=== PATIENT | female | born 1995 | race Caucasian/White ===

== ENCOUNTER → 2022-03-19 12:34 | Outpatient (CLI) | payer BC, SELFPAY ==
[2022-03-19 14:06] LABS: Alanine Aminotransferase 247 IU/L (<35); Albumin 4.4 g/dL (3.5-5.0); Albumin Globulin Ratio 1.3 (1.0-2.8); Alkaline Phosphatase 55 U/L (38-126); BUN Creatinine Ratio 14.1 (6-22); Bilirubin Total 0.6 mg/dL (0.2-1.3); Blood Urea Nitrogen 11 mg/dL (7-17); Calcium 8.9 mg/dL (8.4-10.2); Carbon Dioxide 25 mmol/L (22-32); Chloride 105 mmol/L (98-107); Estimated Glomerular Filt Rate > 60 mL/min (>60); Globulin 3.4 g/dL (1.7-4.1); Glucose 97 mg/dL (70-100); HEMOLYSIS < 15 (0-50); Potassium 4.4 mmol/L (3.4-5.1); Sodium 137 mmol/L (137-145); Total Protein 7.8 g/dL (6.3-8.2)
[2022-03-19 14:12] LABS: Aspartate Aminotransferase 1045 IU/L (14-36)
[2022-03-19 14:55] LABS: Creatine Kinase 66046 U/L (30-135)
[2022-03-19 15:10] LABS: CKMB % Relative Index 0.1 % (1.5-5.0)
== END ==
PROVIDERS: Referring Provider Physician Assistant; Visit Provider Physician Assistant
DX: M79.601 Pain in right arm (principal); M79.602 Pain in left arm
CPT/HCPCS: 36415; 80053; 82550; 82553

== ENCOUNTER 2022-03-19 15:59 | Observation (INO) | payer BC, SELFPAY ==
[2022-03-19] VITALS (11 sets, daily range): BP systolic 136–175; BP diastolic 78–117; PULSE 58–80; RESP 16; TEMP 36.9–37; O2SAT 98–100; BMI 22.8
--- NOTE | 2022-03-19 17:01 | ED_ITS ---
HPI - Extremity Problem General Chief complaint: Extremity Problem,Nontraumatic Stated complaint: Ref for fluids Time Seen by Provider: 03/19/22 16:31 Source: patient Mode of arrival: Ambulatory Limitations: no limitations History of Present Illness HPI Narrative: This is a healthy 26-year-old female with no known past medical issues. Patient had very intense workout on Thursday, she had been working out regularly but recently moved to the area with her boyfriend and has had for work out in the past week. She did quite a bit of upper workout including dumbbell raises, 18 assisted pull-ups, 10 power cleans, shoulder presses and did this 7 times total. Patient states her bilateral upper extremities have become very painful, 3 painful or to fully extend or flex, patient states she had some nausea today has had any other symptoms. No chest pain or shortness of breath, no abdominal flank pain. She noted this afternoon that her urine was dark. Patient has not appreciated decrease in her urine output. Patient was seen at the walk-in clinic had a CPK level obtained which was found to be 66,000 with a normal renal function and electrolytes and referred to the emergency department. Patient has been trying to drink quite a bit of water. She does not take any daily medications. No prior surgeries. No known drug allergies. Tobacco, she drinks 1-2 alcoholic drinks 4 times weekly, no illicit. She does not have a local primary care physician. She moved to the area from [place]. Related Data Home Medications Medication Instructions Recorded Confirmed control PO 03/19/22 03/19/22 Allergies Allergy/AdvReac Type Severity Reaction Status Date / Time No Known Drug Allergies Allergy Verified 03/19/22 16:30 Review of Systems Review of Systems ROS Unobtainable: All systems reviewed & are unremarkable except as noted in HPI and below Patient History Social History Smoking Status: Never smoker Smoking Status: Never smoker alcohol intake frequency: a few times a week Substance Use Type: does not use Exam Narrative Exam Narrative: GENERAL: Alert and oriented x three, female in mild distress. HEENT: Head normocephalic, atraumatic, EOMI, pupils reactive, face symmetric, moist mucous membranes NECK: Supple, full range of motion CARDIOVASCULAR: Regular rate and rhythm without murmurs, rubs or gallops. RESPIRATORY: Breath sounds equal bilaterally, no wheezes rales or rhonchi. ABDOMEN: Soft, nontender. Normoactive bowel sounds all 4 quadrants. No guarding or rebound, rigidity, no mass : No CVA tenderness EXTREMITIES: Patient hold her arm slightly flexed she has some flexion extensi on but is quite painful, compartments are soft, mildly tender to palpation. 2+ radial pulses bilaterally. No clubbing or edema appreciated. Neurovascularly intact. Normal sensation to light touch. NEUROLOGICAL: Cranial nerves II through XII grossly intact. Moving all extremities SKIN: Warm, dry, no petechiae, no rashes or lesions. Initial Vital Signs Initial Vital Signs: Vital Signs Temperature 98.4 F 03/19/22 16:25 Pulse Rate 80 03/19/22 16:25 Respiratory Rate 16 03/19/22 16:25 Blood Pressure 175/117 H 03/19/22 16:25 Pulse Oximetry 100 03/19/22 16:25 Course Orders Ordered: ED Orders 03/19/22 16:45 CBC Auto Diff [Complete Blood Count AUTO DIFF] Stat Myoglobin Stat PTT [Partial Thromboplastin Time] Stat Prothrombin Time INR Stat 03/19/22 16:50 UA Complete [Urinalysis and Microscopic] Stat 03/19/22 16:59 COVID19 -Nasal RAPID/Pre-Proc Stat Sodium Chloride (Normal Saline 0.9%) 1,000 mls @ 200 mls/hr IV CONT CHIN Discontinued Medications Sodium Chloride (Normal Saline 0.9%) 1,000 mls @ 1,000 mls/hr IV BOLUS ONE Stop: 03/19/22 17:31 Last Infusion: 03/19/22 18:33 Dose: 0 mls/hr Documented by: Admin: 03/19/22 17:14 Dose: 1,000 mls/hr Documented by: NRHOADS Sodium Chloride (Normal Saline 0.9%) 1,000 mls @ 1,000 mls/hr IV BOLUS ONE Stop: 03/19/22 18:23 Last Admin: 03/19/22 17:54 Dose: 1,000 mls/hr Documented by: NRHOADS Reevaluation(s) Reevaluation #1: Discussed today's findings with patient. Plan for observation. Reevaluation #2: Patient states right bicep feels little bit more swollen. Her IV is in her left upper extremity. Patient's compartments are soft on recheck, she is tender with palpation but not exquisitely so. No pain out of proportion or signs of compartment syndrome. Consultations Consultation #1: Dr. Chaudhry accepts for observation, with a CK of 66,000, elevation in LFTs but normal renal function and electrolytes. Patient initiated on fluids with plan for monitoring. Time: 18:10 Vital Signs Vital signs: Vital Signs - 8 hr 03/19/22 16:25 03/19/22 17:04 03/19/22 17:05 Temperature 98.4 F Pulse Rate 80 63 Respiratory Rate 16 Blood Pressure 175/117 H 152/89 H Pulse Oximetry 100 100 100 03/19/22 17:30 03/19/22 18:00 Temperature Pulse Rate 58 L 69 Respiratory Rate Blood Pressure 136/80 138/87 Pulse Oximetry 100 100 MDM - Extremity (Nontraumatic) Lab Data Result diagrams: 03/19/22 16:45 Labs: Lab Results 03/19/22 03/19/22 03/19/22 Range/Units 16:45 16:45 16:50 WBC 7.1 (4.5-11.0) X10^3/uL RBC 4.17 (4.0-5.2) X10^6/uL Hgb 12.9 (12.0-16.0) g/dL Hct 36.9 (36-46) % MCV 88.5 (80-100) fL MCH 30.9 (26-34) PG MCHC 34.9 (30-36) % RDW 13.3 (11.6-14.8) % Plt Count 309 (150-400) X10^3/uL Neut % (Auto) 62.7 (50-75) % Lymph % (Auto) 27.8 (25-40) % [place] % (Auto) 7.1 (3-14) % Eos % (Auto) 1.4 L (2-4) % Baso % (Auto) 1.0 (0-2) % Neut # (Auto) 4500 (0244-0385) /uL Lymph # (Auto) 2000 (5809-8971) /uL [place] # (Auto) 500 (0-900) /uL Eos # (Auto) 100 (0-450) /uL Baso # (Auto) 100 (0-100) /uL PT 11.2 (10.1-12.7) SECONDS INR 1.0 (0.9-1.3) APTT 27 (26.4-36.2) SECONDS Urine Color Yellow Urine Appearance Clear Urine pH 6.5 (4.5-8.0) Ur Specific [place] 1.020 (1.000-1.035) Urine Protein 2+ H (Negative) Urine Glucose (UA) Negative (Negative) g/dL Urine Ketones Negative (NEGATIVE) Urine Occult Blood 3+ H (Negative) Urine Nitrate Negative (Negative) Urine Bilirubin Negative (NEGATIVE) Urine Urobilinogen 0.2 (0.2) E.U./dL Ur Leukocyte Esterase Negative (NEGATIVE) Urine RBC 0-1/hpf (0-5/HPF) Urine WBC None seen (0-5/HPF) Ur Squamous Epith Cells 1-5 /hpf (0-5/HPF) Urine Bacteria None seen (None) Ur Culture Indicated? Cult not indicated SARS-CoV-2 (PCR) (Negative) 03/19/22 Range/Units 16:59 WBC (4.5-11.0) X10^3/uL RBC (4.0-5.2) X10^6/uL Hgb (12.0-16.0) g/dL Hct (36-46) % MCV (80-100) fL MCH (26-34) PG MCHC (30-36) % RDW (11.6-14.8) % Plt Count (150-400) X10^3/uL Neut % (Auto) (50-75) % Lymph % (Auto) (25-40) % [place] % (Auto) (3-14) % Eos % (Auto) (2-4) % Baso % (Auto) (0-2) % Neut # (Auto) (2117-1300) /uL Lymph # (Auto) (2367-8810) /uL [place] # (Auto) (0-900) /uL Eos # (Auto) (0-450) /uL Baso # (Auto) (0-100) /uL PT (10.1-12.7) SECONDS INR (0.9-1.3) APTT (26.4-36.2) SECONDS Urine Color Urine Appearance Urine pH (4.5-8.0) Ur Specific [place] (1.000-1.035) Urine Protein (Negative) Urine Glucose (UA) (Negative) g/dL Urine Ketones (NEGATIVE) Urine Occult Blood (Negative) Urine Nitrate (Negative) Urine Bilirubin (NEGATIVE) Urine Urobilinogen (0.2) E.U./dL Ur Leukocyte Esterase (NEGATIVE) Urine RBC (0-5/HPF) Urine WBC (0-5/HPF) Ur Squamous Epith Cells (0-5/HPF) Urine Bacteria (None) Ur Culture Indicated? SARS-CoV-2 (PCR) Negative (Negative) ECG Data Attestation EKG: I personally reviewed and interpreted this ECG as follows: Interpretation: Sinus rhythm rate of 70 6p are 164 QRS 80 QTC [address] No acute ST elevation or depression. MDM Narrative Medical decision making narrative: This is a 26-year-old female sent from the walk-in clinic for a CK of 66,000 after an intense workout 4 days ago followed by several days of less intense workouts. Patient has elevation LFTs but normal renal function and electrolytes. Patient was given 2 L fluid bolus, IV fluids at 200 cc/hour initiated with goal for 200-300 mL urine output and will need to be adjusted. Patient does not have any signs of compartment syndrome on examination. With hospitalist who accepts for observation. Discharge Plan Departure Patient Disposition: Admitted as Observation Clinical Impression: Rhabdomyolysis, Elevated LFTs Admit Date/Time: 03/19/22 18:10 Admit Provider: Noemy Miller
[2022-03-19 17:06] LABS: Appearance Urine UA Clear; Bilirubin Urine UA NEGATIVE (NEGATIVE); Color Urine UA Yellow; Glucose Urine UA NEGATIVE (Negative); Ketones Urine UA NEGATIVE (NEGATIVE); Leukocyte Esterase Urine UA NEGATIVE (NEGATIVE); Nitrite Urine UA NEGATIVE (Negative); Occult Blood Urine UA 3+ (Negative); Protein Urine UA 2+ (Negative); Urobilinogen Urine UA 0.2 E.U./dL (0.2); pH Urine UA 6.5 (4.5-8.0)
[2022-03-19 17:12] LABS: Add Manual Diff / Slide Review NO; Basophils Absolute Auto 100 /uL (0-100); Eosinophils Absolute Auto 100 /uL (0-450); Eosinophils Percent Auto 1.4 % (2-4); Hematocrit 36.9 % (36-46); Hemoglobin 12.9 g/dL (12.0-16.0); Lymphocytes Absolute Auto 2000 /uL (1100-4500); Lymphocytes Percent Auto 27.8 % (25-40); Mean Corpuscular HGB Conc 34.9 % (30-36); Mean Corpuscular Hemoglobin 30.9 PG (26-34); Mean Corpuscular Volume 88.5 fL (80-100); Monocytes Absolute Auto 500 /uL (0-900); Monocytes Percent Auto 7.1 % (3-14); Neutrophils Absolute Auto 4500 /uL (1500-7000); Neutrophils Percent Auto 62.7 % (50-75); Platelet Count 309 X10^3/uL (150-400); Red Blood Cell Count 4.17 X10^6/uL (4.0-5.2); Red Cell Distribution Width 13.3 % (11.6-14.8); White Blood Cell Count 7.1 X10^3/uL (4.5-11.0)
[2022-03-19] MEDS: SODIUM CHLORIDE 0.9% 1,000 ML 1000 ML IV ×2 (17:14→17:54)
[2022-03-19 17:15] LABS: Bacteria Urine None Seen; Culture Indicated Urine Cult Not Indicated; RBC Urine 0-1/HPF (0-5/HPF); Squamous Epithelial Cell Urine 1-5 /HPF (0-5/HPF); WBC Urine None Seen (0-5/HPF)
[2022-03-19 17:27] LABS: COVID19 -Nasal RAPID Negative (Negative)
[2022-03-19 17:35] LABS: Prothrombin Time 11.2 SECONDS (10.1-12.7)
[2022-03-19 17:38] LABS: PTT Partial Thromboplastin Tim 27 SECONDS (26.4-36.2)
[2022-03-19] MEDS: SODIUM CHLORIDE 0.9% 1,000 ML 200 ML IV (19:07)
[2022-03-19] MEDS: SODIUM CHLORIDE 0.9% 1,000 ML 500 ML IV ×2 (20:15→22:18)
--- NOTE | 2022-03-19 23:29 | PM.HP.1 ---
History of Present Illness History of Present Illness Date Patient Seen: 03/19/22 Time Patient Seen: 21:00 Chief complaint: Ref for fluids Narrative: Ms. Martinez is a 26W with no significant PMH who presents with bilateral arm swelling, pain, weakness. She has noted that she did strenuous exercise three days ago, and this continued the following days. These were primarily arm exercises. She also did go on a run. She noted two days ago the beginning of arm swelling that was primarily located in her bicep. Over the next few days, this worsened to include pain with extension. She noted dark urine. She was aware of rhabdo, and sought to be checked out as she was concerned she might have it. She was first seen in the walk-in clinic, where CK was noted to be 66,000. She was sent to the ED. In the ED workup was done, vitals notable for normal temperature, heart rate. Blood pressure elevated 170s/110s. Labs notable for WBC 7.1, hgb 12.9, plts 309. Creatinine 0.78, K 4.4. AST/ALT 1045/247. UA notable for 3+ blood with no RBCs. COVID negative. She was given IV fluids and admitted for further treatment. Family history: asked and kidney disease Social history: occasional EtOH Patient History Family & Social History Social History: household members significant other Prior Living Arrangements House Safety & Behavioral: Feels Safe in Current Yes Environment Tobacco & Substance use: Smoking Status Never smoker alcohol intake frequency a few times a week Substance Use Type does not use Meds Home Medications and Allergies Home Medications Medication Instructions Recorded Confirmed Type control PO 03/19/22 03/19/22 History Allergies Allergy/AdvReac Type Severity Reaction Status Date / Time No Known Drug Allergies Allergy Verified 03/19/22 16:30 Review of Systems Review of Systems Narrative: 14 systems reviewed and negative aside from what is noted in HPI Exam Vital Signs (past 8 hours): - 03/19/22 16:25 03/19/22 17:04 03/19/22 17:05 Temperature 98.4 F Pulse Rate 80 63 Respiratory Rate 16 Blood Pressure 175/117 H 152/89 H Pulse Oximetry 100 100 100 03/19/22 17:30 03/19/22 18:00 03/19/22 18:30 Temperature Pulse Rate 58 L 69 71 Respiratory Rate Blood Pressure 136/80 138/87 149/78 H Pulse Oximetry 100 100 100 03/19/22 19:00 03/19/22 19:20 03/19/22 20:00 Temperature 98.6 F Pulse Rate 76 75 Respiratory Rate 16 Blood Pressure 151/97 H 159/85 H Pulse Oximetry 100 100 100 Oxygen Delivery Method Room Air Oxygen Flow Rate 0 Narrative Exam Narrative: GEN: no acute distress HEENT: PERRL, moist mucous membranes NECK: trachea midline, no JVD CV: regular rate and rhythm, no murmurs PULM: clear bilaterally, no wheezes, rhonchi, rales EXT: warm and well perfused, upper extremites notable for moderate edema in the biceps and forearms. Range of motion at elbow slightly limited due to pain and swelling. Range of motion of all other upper extremity joints intact. Arm is warm and well perfused, 2+ pulses with normal cap refill. Sensation is intact NEURO: awake, alert, no focal deficits noted PSYCH: pleasant, cooperative, appropriate affect Objective Labs Result Diagrams: 03/19/22 16:45 Labs: Laboratory Results - last 24 hr 03/19/22 03/19/22 03/19/22 16:45 16:45 16:50 WBC 7.1 RBC 4.17 Hgb 12.9 Hct 36.9 MCV 88.5 MCH 30.9 MCHC 34.9 RDW 13.3 Plt Count 309 Neut % (Auto) 62.7 Lymph % (Auto) 27.8 [place] % (Auto) 7.1 Eos % (Auto) 1.4 L Baso % (Auto) 1.0 Neut # (Auto) 4500 Lymph # (Auto) 2000 [place] # (Auto) 500 Eos # (Auto) 100 Baso # (Auto) 100 PT 11.2 INR 1.0 APTT 27 Urine Color Yellow Urine Appearance Clear Urine pH 6.5 Ur Specific [place] 1.020 Urine Protein 2+ H Urine Glucose (UA) Negative Urine Ketones Negative Urine Occult Blood 3+ H Urine Nitrate Negative Urine Bilirubin Negative Urine Urobilinogen 0.2 Ur Leukocyte Esterase Negative Urine RBC 0-1/hpf Urine WBC None seen Ur Squamous Epith Cells 1-5 /hpf Urine Bacteria None seen Ur Culture Indicated? Cult not indicated SARS-CoV-2 (PCR) 03/19/22 16:59 WBC RBC Hgb Hct MCV MCH MCHC RDW Plt Count Neut % (Auto) Lymph % (Auto) [place] % (Auto) Eos % (Auto) Baso % (Auto) Neut # (Auto) Lymph # (Auto) [place] # (Auto) Eos # (Auto) Baso # (Auto) PT INR APTT Urine Color Urine Appearance Urine pH Ur Specific [place] Urine Protein Urine Glucose (UA) Urine Ketones Urine Occult Blood Urine Nitrate Urine Bilirubin Urine Urobilinogen Ur Leukocyte Esterase Urine RBC Urine WBC Ur Squamous Epith Cells Urine Bacteria Ur Culture Indicated? SARS-CoV-2 (PCR) Negative Assessment & Plan Assessment & Plan narrative: Ms. Martinez is a 26W who presents with arm pain and swelling after exercise found to have rhabdomyolysis 1. Acute rhabdomyolysis -secondary to exercise -initial CK > 66,000 -urine showed positive blood, but no RBC, consistent with myoglobinuria -trend CK daily -electrolytes normal -AST/ALT elevated likely secondary to myocyte injury, trend daily -creatinine normal, monitor daily -did received IV fluid bolus in ED, continue IVF at 500cc/hr, goal 200 cc/hr urine output -monitor closely for compartment syndrome with IV fluids being given briskly CODE: Full Proxy: J Carlos Martinez, father I have utilized all available resources to reconcile the patient's home medications Time Spent With Patient Critical Care time: I spent a total of [] minutes of critical care time on this patient's care today; this time is exclusive of procedural time. Quality MIPS - Admit I confirm the patient?s Advance Care Plan is present, Code status is documented, Surrogate decision maker is in patient?s record [If Yes, STOP here]: Yes
[2022-03-20] VITALS (14 sets, daily range): BP systolic 107–160; BP diastolic 54–92; PULSE 51–64; RESP 16; TEMP 36.6–37.6; O2SAT 94–100
[2022-03-20] MEDS: SODIUM CHLORIDE 0.9% 1,000 ML 500 ML IV ×6 (00:22→10:50)
[2022-03-20 05:14] LABS: Myoglobin 8708 ng/mL (25-58)
[2022-03-20 07:02] LABS: Add Manual Diff / Slide Review NO; Basophils Absolute Auto 0 /uL (0-100); Basophils Percent Auto 0.6 % (0-2); Eosinophils Absolute Auto 200 /uL (0-450); Eosinophils Percent Auto 3.8 % (2-4); Hematocrit 30.2 % (36-46); Hemoglobin 10.5 g/dL (12.0-16.0); Lymphocytes Absolute Auto 2000 /uL (1100-4500); Lymphocytes Percent Auto 38.7 % (25-40); Mean Corpuscular HGB Conc 34.7 % (30-36); Mean Corpuscular Volume 89.3 fL (80-100); Monocytes Absolute Auto 400 /uL (0-900); Neutrophils Absolute Auto 2600 /uL (1500-7000); Neutrophils Percent Auto 49.9 % (50-75); Platelet Count 207 X10^3/uL (150-400); Red Blood Cell Count 3.39 X10^6/uL (4.0-5.2); Red Cell Distribution Width 13.3 % (11.6-14.8); White Blood Cell Count 5.1 X10^3/uL (4.5-11.0)
[2022-03-20 07:10] LABS: BUN Creatinine Ratio 9.7 (6-22); Blood Urea Nitrogen 6 mg/dL (7-17); Carbon Dioxide 22 mmol/L (22-32); Chloride 117 mmol/L (98-107); Estimated Glomerular Filt Rate > 60 mL/min (>60); Glucose 102 mg/dL (70-100); HEMOLYSIS < 15 (0-50); Potassium 4.1 mmol/L (3.4-5.1); Sodium 137 mmol/L (137-145)
[2022-03-20 07:19] LABS: Alanine Aminotransferase 193 IU/L (<35); Albumin 2.6 g/dL (3.5-5.0); Albumin Globulin Ratio 1.1 (1.0-2.8); Alkaline Phosphatase 42 U/L (38-126); Bilirubin Total 0.3 mg/dL (0.2-1.3); Bilirubin Unconjugated 0.4 mg/dL (0.0-1.1); Globulin 2.3 g/dL (1.7-4.1); HEMOLYSIS < 15 (0-50); Total Protein 4.9 g/dL (6.3-8.2)
[2022-03-20 07:25] LABS: Creatine Kinase 53182 U/L (30-135)
[2022-03-20 07:26] LABS: Aspartate Aminotransferase 702 IU/L (14-36)
--- NOTE | 2022-03-20 08:25 | DI.MRI.S_ITS ---
PROCEDURE: MR ELBOW LT WO/W CON INDICATIONS: CPK>60K ON ADMISSION; ? COMPARTMENT SYNDR TECHNIQUE: Noncontrast coronal proton density fast spin echo and T2 fast spin echo with fat saturation, coronal T1 spin echo with fat saturation, axial and sagittal T1 spin echo and T2 fast spin echo with fat saturation through the elbow. Post-contrast coronal, axial, and sagittal T1 spin echo with fat saturation through the elbow. COMPARISON: None. FINDINGS: Image quality: Excellent. Lateral structures: The lateral ulnar collateral ligament and radial collateral ligament both appear intact. The overlying common extensor tendon also appears normal. Medial structures: The ulnar collateral ligament appears intact. The overlying common flexor tendon appears normal. The ulnar nerve appears normal in size and signal within the cubital tunnel. Anterior structures: Distal biceps and brachialis tendons are intact. Significant edema within brachialis muscle and medial portion of distal biceps breaking muscle is seen and show heterogeneous contrast enhancement. No fluid distension of bicipital bursa is seen. No fluid along muscle fascial plane is noted. No discrete intramuscular fluid collection is seen. The median and radial neurovascular bundles appear normal; no focal muscle atrophy to suggest nerve impingement. Significant soft tissue swelling and edema surrounding elbow joint particularly along anterior and lateral aspect of elbow soft tissue. No discrete drainable soft tissue fluid collection is seen. Posterior structures: The conjoint triceps tendon from the long and lateral heads appears intact. The medial head of the triceps tendon also appears normal, with direct muscle insertion onto the olecranon. Mild dorsal elbow soft tissue swelling and edema particularly over olecranon is seen. Fluid distending olecranon bursa is also noted. Bone and cartilage: No suspicious osseous enhancement. No bone marrow contusions or fractures. No osteochondral injuries. IMPRESSION: 1. Edema and enhancement involving medial portion of distal biceps brachy muscle and brachialis muscle concerning for compartment syndrome, suggest clinical correlation. No intramuscular fluid collection or mass is seen. 2. Fluid distending olecranon bursa concerning for bursitis. 3. Diffuse elbow soft tissue swelling particularly over anterior and lateral portion. No marrow edema. No fracture or dislocation. No abnormal intraosseous enhancement. Dictated by: Darrell Lopez M.D. on 03/20/2022 at 13:59 Approved by: Darrell Lopez M.D. on 03/20/2022 at 14:14
--- NOTE | 2022-03-20 12:17 | CM.DANOTE ---
Initial DCP Assessment Note Pt is a 26 yo female, resident of [place] , arrives w/acute rhabdo and need for fluids after strenuous exercise. Patient visiting her boyfriend, who is active [employer], for the summer. 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 Patient is very pleasant, indp and active; states she will have her S.O. with her if needed for assist once discharged No needs expected from DC planning team although will remain available in case this changes before DC. MONICA [place] Discharge Planning/Care Management CM Discharge Assessment Start: 03/20/22 12:13 Freq: Status: Active Protocol: Document 03/20/22 12:13 PIERO (Rec: 03/20/22 12:17 PIERO [id number]) Discharge Planning Assessment Assigned Alto Singer MONICA Leavitt DPOA/Assigned Designee Name J Carlos Martinez, Father ([place]) Contact Information [phone] Advance Directives? No History Provided By Patient Prior Living Arrangements House Household Members significant other Type of transporation used prior to Drives own vehicle admit Independent with ADL's Yes Is patient alert and oriented? Yes Barriers to Discharge No Discharge Plan Home Transportation Arrangement S.O. Referrals Initiated None needed
[2022-03-20] MEDS: DEXTROSE 5%-0.45% NS 1,000 ML 100 ML IV (13:34)
--- NOTE | 2022-03-20 15:36 | PM.CN ---
History of Present Illness Consult details Date Patient Seen: 03/20/22 Time Patient Seen: 15:36 Chief complaint: Ref for fluids Reason for consult: bilateral arm pain, poss compartment syndrome Requesting provider: Liam Tang Narrative: Ms. Martinez is a 26 female with no significant PMH who presents with bilateral arm swelling, pain, weakness. She has noted that she has been doing a lot of heavy arm exercises at [place], including 'a lot of pull ups.' She noted two days ago the beginning of arm swelling that was primarily located in her bicep. Over the next few days, this worsened to include pain with extension. She noted dark urine. She was aware of rhabdomyolysis, and sought to be checked out as she was concerned she might have it. She was first seen in the walk-in clinic, where CK was noted to be 66,000. She was sent to the ED. In the ED workup was done, vitals notable for normal temperature, heart rate. Blood pressure elevated 170s/110s. Labs notable for WBC 7.1, hgb 12.9, plts 309. Creatinine 0.78, K 4.4. AST/ALT 1045/247. UA notable for 3+ blood with no RBCs. COVID negative. She was given IV fluids and admitted for further treatment. Meds Home Medications and Allergies Home Medications Medication Instructions Recorded Confirmed Type control PO 03/19/22 03/19/22 History Allergies Allergy/AdvReac Type Severity Reaction Status Date / Time No Known Drug Allergies Allergy Verified 03/19/22 16:30 Review of Systems Review of Systems ROS: Yes All systems reviewed with the patient and are negative except as otherwise documented Exam Vital Signs (past 8 hours): - 03/20/22 07:55 03/20/22 09:10 03/20/22 11:00 Temperature 98.7 F Pulse Rate 57 L Respiratory Rate 16 Blood Pressure 139/78 Pulse Oximetry 94 100 99 03/20/22 12:15 Temperature 98.2 F Pulse Rate 60 Respiratory Rate 16 Blood Pressure 145/92 H Pulse Oximetry 100 Oxygen Delivery Method Room Air Oxygen Flow Rate 0 Narrative Exam Narrative: Some problems with active full extension at elbows, but otherwise has full AROM of shoulders, wrists, fingers. Arms are mildly and symmetrically edematous, warm, and nontender to palpation. Sensation to light touch intact throughout BLE. Radial and ulnar pulses are 2+, capillary refill is brisk. Const General: cooperative and healthy appearing Orientation: alert, awake and oriented x3 HENMT Head: normocephalic and atraumatic Eyes General: appearance normal, both eyes and all related structures Resp Effort & Inspection: normal respiratory effort and able to speak in complete sentences Cardio Rate: regular rate Rhythm: regular rhythm Pulses: radial pulses present and ulnar radial pulses present Neuro Cognition: normal cognition Speech: speech normal Objective Labs Result Diagrams: 03/20/22 06:30 03/20/22 06:30 Labs: Laboratory Results - last 24 hr 03/19/22 03/19/22 03/19/22 16:45 16:45 16:45 WBC 7.1 RBC 4.17 Hgb 12.9 Hct 36.9 MCV 88.5 MCH 30.9 MCHC 34.9 RDW 13.3 Plt Count 309 Neut % (Auto) 62.7 Lymph % (Auto) 27.8 [place] % (Auto) 7.1 Eos % (Auto) 1.4 L Baso % (Auto) 1.0 Neut # (Auto) 4500 Lymph # (Auto) 2000 [place] # (Auto) 500 Eos # (Auto) 100 Baso # (Auto) 100 PT 11.2 INR 1.0 APTT 27 Sodium Potassium Chloride Carbon Dioxide BUN Creatinine Estimated GFR BUN/Creatinine Ratio Glucose Calcium Total Bilirubin Conjugated Bilirubin Unconjugated Bilirubin AST ALT Alkaline Phosphatase Total Creatine Kinase Myoglobin 8708 H Total Protein Albumin Globulin Albumin/Globulin Ratio Urine Color Urine Appearance Urine pH Ur Specific [place] Urine Protein Urine Glucose (UA) Urine Ketones Urine Occult Blood Urine Nitrate Urine Bilirubin Urine Urobilinogen Ur Leukocyte Esterase Urine RBC Urine WBC Ur Squamous Epith Cells Urine Bacteria Ur Culture Indicated? SARS-CoV-2 (PCR) 03/19/22 03/19/22 03/20/22 16:50 16:59 06:30 WBC RBC Hgb Hct MCV MCH MCHC RDW Plt Count Neut % (Auto) Lymph % (Auto) [place] % (Auto) Eos % (Auto) Baso % (Auto) Neut # (Auto) Lymph # (Auto) [place] # (Auto) Eos # (Auto) Baso # (Auto) PT INR APTT Sodium Potassium Chloride Carbon Dioxide BUN Creatinine Estimated GFR BUN/Creatinine Ratio Glucose Calcium Total Bilirubin 0.3 Conjugated Bilirubin 0.0 Unconjugated Bilirubin 0.4 AST 702 H ALT 193 H Alkaline Phosphatase 42 Total Creatine Kinase Myoglobin Total Protein 4.9 L Albumin 2.6 L Globulin 2.3 Albumin/Globulin Ratio 1.1 Urine Color Yellow Urine Appearance Clear Urine pH 6.5 Ur Specific [place] 1.020 Urine Protein 2+ H Urine Glucose (UA) Negative Urine Ketones Negative Urine Occult Blood 3+ H Urine Nitrate Negative Urine Bilirubin Negative Urine Urobilinogen 0.2 Ur Leukocyte Esterase Negative Urine RBC 0-1/hpf Urine WBC None seen Ur Squamous Epith Cells 1-5 /hpf Urine Bacteria None seen Ur Culture Indicated? Cult not indicated SARS-CoV-2 (PCR) Negative 03/20/22 03/20/22 06:30 06:30 WBC 5.1 RBC 3.39 L Hgb 10.5 L Hct 30.2 L MCV 89.3 MCH 31.0 MCHC 34.7 RDW 13.3 Plt Count 207 Neut % (Auto) 49.9 L Lymph % (Auto) 38.7 [place] % (Auto) 7.0 Eos % (Auto) 3.8 Baso % (Auto) 0.6 Neut # (Auto) 2600 Lymph # (Auto) 2000 [place] # (Auto) 400 Eos # (Auto) 200 Baso # (Auto) 0 PT INR APTT Sodium 137 Potassium 4.1 Chloride 117 H Carbon Dioxide 22 BUN 6 L Creatinine 0.62 Estimated GFR > 60 BUN/Creatinine Ratio 9.7 Glucose 102 H Calcium 7.0 L Total Bilirubin Conjugated Bilirubin Unconjugated Bilirubin AST ALT Alkaline Phosphatase Total Creatine Kinase 94341 H Myoglobin Total Protein Albumin Globulin Albumin/Globulin Ratio Urine Color Urine Appearance Urine pH Ur Specific [place] Urine Protein Urine Glucose (UA) Urine Ketones Urine Occult Blood Urine Nitrate Urine Bilirubin Urine Urobilinogen Ur Leukocyte Esterase Urine RBC Urine WBC Ur Squamous Epith Cells Urine Bacteria Ur Culture Indicated? SARS-CoV-2 (PCR) PFSH Social History household members: significant other Tobacco & Substance Use Smoking Status: Never smoker Assessment & Plan Assessment and plan (1) Rhabdomyolysis: Status: Acute Plan: Appreciate consult. At this time, there is no evidence of compartment syndrome, tissue necrosis, or biceps tear. Case discussed with Dr Sheryl Miranda, who was the receiving on-call orthopedic surgeon. We will check on her again tomorrow, sooner if needed. Time Spent With Patient Critical Care time: I spent a total of [] minutes of critical care time on this patient's care today; this time is exclusive of procedural time.
--- NOTE | 2022-03-20 16:02 | PM.PN.1 ---
Subjective Subjective Date Patient Seen: 03/20/22 Interval history: THIS IS A VERY PLEASANT 26-YEAR-OLD FEMALE ADMITTED TO THE HOSPITAL WITH SWELLING OF THE LEFT ELBOW GREATER THAN THE RIGHT. REPORTED EXTREME USE EXERCISES A COUPLE DAYS PRIOR TO COMING TO THE HOSPITAL WITH NOTICEABLE PAIN/DISCOMFORT. MRI ON 03/20 APPEARS TO SHOW WHAT COULD BE COMPARTMENT SYNDROME WITH SIGNIFICANT INFLAMMATORY PROCESS. CPK ON ADMISSION 03/19 WAS 66K TODAY PATIENT REPORTED SOME DISCOMFORT WITH ACTIVE AND PASSIVE RANGE OF MOTION OF THE LEFT UPPER EXTREMITY GREATER THAN THE RIGHT DENIES FEVER AND CHILLS. NO CHEST PAIN NO SHORTNESS OF BREATHS SPOKE TO ORTHOPEDIC SURGERY IN REGARD TO THE CASE Exam Vital Signs (past 8 hours): - 03/20/22 09:10 03/20/22 11:00 03/20/22 12:15 Temperature 98.7 F 98.2 F Pulse Rate 57 L 60 Respiratory Rate 16 16 Blood Pressure 139/78 145/92 H Pulse Oximetry 100 99 100 03/20/22 15:00 Temperature Pulse Rate Respiratory Rate Blood Pressure Pulse Oximetry 100 Oxygen Delivery Method Room Air Oxygen Flow Rate 0 Narrative Exam Narrative: NO ACUTE DISTRESS. PATIENT IS ALERT ORIENTED X3. VITAL SIGNS STABLE HEAD ATRAUMATIC NORMOCEPHALIC NECK : SUPPLE WITHOUT ADENOPATHY NO CAROTID BRUITS EYE: EOMI, PERRLA, NORMAL CONJUNCTIVA; NO JAUNDICE CHEST: REGULAR RATE. NO RUBS. PMI IS NON DISPLACED. NO MURMURS; NORMAL S1-S2 PULMONARY: DECREASED BS OVER THE BASES. MILD BIBASILAR CRACKLES NOTED; NO INCREASED DULLNESS TO PERCUSSION ABDOMEN: SOFT. NONTENDER. NONDISTENDED. BOWEL SOUNDS ARE PRESENT IN ALL 4 QUADRANTS. NO MASS. EXTREMITIES: NO EDEMA.. NO CYANOSIS CLUBBING NOTED. SWELLING NOTED TO THE LEFT ELBOW. NO DECREASED SENSATION TO THE EXTREMITIES. NO OPEN WOUNDS NEURO: CRANIAL NERVES 2-12 GROSSLY INTACT. NO FOCAL NEUROLOGICAL DEFICIT NOTED. MSK: NORMAL RANGE OF MOTION FOR AGE. NO JOINT EFFUSION. SKIN: NORMAL FOR ETHNICITY; NO ECCHYMOSIS. NO LESION. GOOD TURGOR.; NO RASHES : NORMAL EXTERNAL GENITALIA. PSYCH : APPROPRIATE MOOD AND AFFECT. ALERT AWAKE ORIENTED X3 Objective Labs Result Diagrams: 03/20/22 06:30 03/20/22 06:30 Labs: Laboratory Results - last 24 hr 03/19/22 03/19/22 03/19/22 16:45 16:45 16:45 WBC 7.1 RBC 4.17 Hgb 12.9 Hct 36.9 MCV 88.5 MCH 30.9 MCHC 34.9 RDW 13.3 Plt Count 309 Neut % (Auto) 62.7 Lymph % (Auto) 27.8 [place] % (Auto) 7.1 Eos % (Auto) 1.4 L Baso % (Auto) 1.0 Neut # (Auto) 4500 Lymph # (Auto) 2000 [place] # (Auto) 500 Eos # (Auto) 100 Baso # (Auto) 100 PT 11.2 INR 1.0 APTT 27 Sodium Potassium Chloride Carbon Dioxide BUN Creatinine Estimated GFR BUN/Creatinine Ratio Glucose Calcium Total Bilirubin Conjugated Bilirubin Unconjugated Bilirubin AST ALT Alkaline Phosphatase Total Creatine Kinase Myoglobin 8708 H Total Protein Albumin Globulin Albumin/Globulin Ratio Urine Color Urine Appearance Urine pH Ur Specific [place] Urine Protein Urine Glucose (UA) Urine Ketones Urine Occult Blood Urine Nitrate Urine Bilirubin Urine Urobilinogen Ur Leukocyte Esterase Urine RBC Urine WBC Ur Squamous Epith Cells Urine Bacteria Ur Culture Indicated? SARS-CoV-2 (PCR) 03/19/22 03/19/22 03/20/22 16:50 16:59 06:30 WBC RBC Hgb Hct MCV MCH MCHC RDW Plt Count Neut % (Auto) Lymph % (Auto) [place] % (Auto) Eos % (Auto) Baso % (Auto) Neut # (Auto) Lymph # (Auto) [place] # (Auto) Eos # (Auto) Baso # (Auto) PT INR APTT Sodium Potassium Chloride Carbon Dioxide BUN Creatinine Estimated GFR BUN/Creatinine Ratio Glucose Calcium Total Bilirubin 0.3 Conjugated Bilirubin 0.0 Unconjugated Bilirubin 0.4 AST 702 H ALT 193 H Alkaline Phosphatase 42 Total Creatine Kinase Myoglobin Total Protein 4.9 L Albumin 2.6 L Globulin 2.3 Albumin/Globulin Ratio 1.1 Urine Color Yellow Urine Appearance Clear Urine pH 6.5 Ur Specific [place] 1.020 Urine Protein 2+ H Urine Glucose (UA) Negative Urine Ketones Negative Urine Occult Blood 3+ H Urine Nitrate Negative Urine Bilirubin Negative Urine Urobilinogen 0.2 Ur Leukocyte Esterase Negative Urine RBC 0-1/hpf Urine WBC None seen Ur Squamous Epith Cells 1-5 /hpf Urine Bacteria None seen Ur Culture Indicated? Cult not indicated SARS-CoV-2 (PCR) Negative 03/20/22 03/20/22 06:30 06:30 WBC 5.1 RBC 3.39 L Hgb 10.5 L Hct 30.2 L MCV 89.3 MCH 31.0 MCHC 34.7 RDW 13.3 Plt Count 207 Neut % (Auto) 49.9 L Lymph % (Auto) 38.7 [place] % (Auto) 7.0 Eos % (Auto) 3.8 Baso % (Auto) 0.6 Neut # (Auto) 2600 Lymph # (Auto) 2000 [place] # (Auto) 400 Eos # (Auto) 200 Baso # (Auto) 0 PT INR APTT Sodium 137 Potassium 4.1 Chloride 117 H Carbon Dioxide 22 BUN 6 L Creatinine 0.62 Estimated GFR > 60 BUN/Creatinine Ratio 9.7 Glucose 102 H Calcium 7.0 L Total Bilirubin Conjugated Bilirubin Unconjugated Bilirubin AST ALT Alkaline Phosphatase Total Creatine Kinase 73040 H Myoglobin Total Protein Albumin Globulin Albumin/Globulin Ratio Urine Color Urine Appearance Urine pH Ur Specific [place] Urine Protein Urine Glucose (UA) Urine Ketones Urine Occult Blood Urine Nitrate Urine Bilirubin Urine Urobilinogen Ur Leukocyte Esterase Urine RBC Urine WBC Ur Squamous Epith Cells Urine Bacteria Ur Culture Indicated? SARS-CoV-2 (PCR) [facility] Social History household members: significant other Smoking Status: Never smoker Assessment & Plan Assessment & Plan narrative: IMPRESSION POSSIBLE COMPARTMENT SYNDROME ON THE LEFT ELBOW. ORTHO SURGERY TO SEE BURSITIS ON THE LEFT. ORTHOPEDIC SURGERY CONSULTED RHABDOMYOLYSIS. CPK 53K<----63K ELEVATED LIVER ENZYMES. ASSOCIATED WITH RHABDOMYOLYSIS ANEMIA. SUSPECT VITAMIN DEFICIENCY. DESPITE NORMAL MCV PLAN SURGICAL TEAM CONSULTED FOR RECOMMENDATIONS CONTINUE IV FLUID THERAPY FOR NOW DECREASED FROM 250 TO 100 CC/HOUR ENCOURAGE P.O. INTAKE MONITOR KIDNEY FUNCTION CLOSELY DAILY LABS WILL BE ORDERED NO INDICATION FOR ANTIBIOTICS OR BICARB KIDNEY FUNCTION IS HOLDING. SIGNIFICANT ACIDOSIS. MONITOR LIVER ENZYMES CLOSELY WELL CONSIDER ADDING STEROIDS TO THE REGIMEN IF INDICATED ADDITIONAL MANAGEMENT PER CLINICAL COURSE WILL AWAIT RECOMMENDATIONS FROM THE SURGICAL TEAM Time Spent With Patient Critical Care time: I spent a total of [] minutes of critical care time on this patient's care today; this time is exclusive of procedural time.
[2022-03-21] VITALS: BP 129/71; PULSE 57; RESP 16; TEMP 37.2; O2SAT 100; O2SAT 98
[2022-03-21] MEDS: DEXTROSE 5%-0.45% NS 1,000 ML 100 ML IV (00:07)
[2022-03-21 04:00] VITALS: BP 99/47; PULSE 50; RESP 14; TEMP 36.9; O2SAT 98; O2SAT 99
[2022-03-21 05:16] LABS: Add Manual Diff / Slide Review NO; Basophils Absolute Auto 0 /uL (0-100); Basophils Percent Auto 0.7 % (0-2); Eosinophils Absolute Auto 200 /uL (0-450); Eosinophils Percent Auto 4.2 % (2-4); Hematocrit 32.7 % (36-46); Hemoglobin 11.4 g/dL (12.0-16.0); Lymphocytes Absolute Auto 2000 /uL (1100-4500); Lymphocytes Percent Auto 33.9 % (25-40); Mean Corpuscular HGB Conc 34.9 % (30-36); Mean Corpuscular Volume 88.9 fL (80-100); Monocytes Absolute Auto 500 /uL (0-900); Monocytes Percent Auto 7.6 % (3-14); Neutrophils Absolute Auto 3200 /uL (1500-7000); Neutrophils Percent Auto 53.6 % (50-75); Platelet Count 204 X10^3/uL (150-400); Red Blood Cell Count 3.68 X10^6/uL (4.0-5.2); Red Cell Distribution Width 13.3 % (11.6-14.8)
[2022-03-21 05:49] LABS: Alanine Aminotransferase 232 IU/L (<35); Albumin Globulin Ratio 1.2 (1.0-2.8); Alkaline Phosphatase 41 U/L (38-126); BUN Creatinine Ratio 14.1 (6-22); Bilirubin Total 0.3 mg/dL (0.2-1.3); Blood Urea Nitrogen 9 mg/dL (7-17); Calcium 8.3 mg/dL (8.4-10.2); Carbon Dioxide 23 mmol/L (22-32); Chloride 110 mmol/L (98-107); Estimated Glomerular Filt Rate > 60 mL/min (>60); Globulin 2.6 g/dL (1.7-4.1); Glucose 110 mg/dL (70-100); HEMOLYSIS < 15 (0-50); Phosphorous 3.8 mg/dL (2.5-4.5); Potassium 3.9 mmol/L (3.4-5.1); Sodium 137 mmol/L (137-145); Total Protein 5.6 g/dL (6.3-8.2)
[2022-03-21 05:54] LABS: Aspartate Aminotransferase 716 IU/L (14-36)
--- NOTE | 2022-03-21 07:40 | P.HP_ITS ---
History of Present Illness History of Present Illness Date Patient Seen: 03/21/22 Time Patient Seen: 07:20 Chief complaint: Ref for fluids Narrative: This is a pleasant 26-year-old [id number] female is going to [facility]. She was aggressively working out at [email or web address] on Thursday. She noted significant pain in her arms bilaterally on Thursday. She noted that then progressively stiff in on Thursday and Thursday. It got progressively worse and she was seen at the at an urgent care center. Her labs showed evidence of elevated creatinine kinase. And she was admitted for rhabdomyolysis. Patient History Family & Social History Social History: household members significant other Prior Living Arrangements House Safety & Behavioral: Feels Safe in Current Yes Environment Tobacco & Substance use: Smoking Status Never smoker alcohol intake frequency a few times a week Substance Use Type does not use Meds Home Medications and Allergies Home Medications Medication Instructions Recorded Confirmed Type control PO 03/19/22 03/19/22 History Allergies Allergy/AdvReac Type Severity Reaction Status Date / Time No Known Drug Allergies Allergy Verified 03/19/22 16:30 Review of Systems Review of Systems Narrative: She normally works out on a regular basis. She has not had any upper extremity problems previously. She does not use energy drinks. There is no exposure to steroids. Exam Vital Signs (past 8 hours): - 03/21/22 00:00 03/21/22 04:00 Temperature 98.9 F 98.4 F Pulse Rate 57 L 50 L Respiratory Rate 16 14 Blood Pressure 129/71 99/47 L Pulse Oximetry 98 98 Oxygen Delivery Method Room Air Oxygen Flow Rate 0 Narrative Exam Narrative: She is alert she is oriented she is resting comfortably in bed neck is supple, she has tenderness over her biceps bilaterally. There is some bruising of the anterior aspect of the right forearm, her right arm range of motion is 20-130 de grees, there is some focal tenderness over right biceps but the compartments are soft. Left arm range of motion 20-130 degrees, some focal tenderness over her anterior biceps, there was full range of motion of her shoulder, her biceps is soft, she is neurologically intact distally in bilateral upper extremities Objective Labs Result Diagrams: 03/21/22 04:47 03/21/22 04:47 Labs: Laboratory Results - last 24 hr 03/21/22 03/21/22 04:47 04:47 WBC 6.0 RBC 3.68 L Hgb 11.4 L Hct 32.7 L MCV 88.9 MCH 31.0 MCHC 34.9 RDW 13.3 Plt Count 204 Neut % (Auto) 53.6 Lymph % (Auto) 33.9 [place] % (Auto) 7.6 Eos % (Auto) 4.2 H Baso % (Auto) 0.7 Neut # (Auto) 3200 Lymph # (Auto) 2000 [place] # (Auto) 500 Eos # (Auto) 200 Baso # (Auto) 0 Sodium 137 Potassium 3.9 Chloride 110 H Carbon Dioxide 23 BUN 9 Creatinine 0.64 Estimated GFR > 60 BUN/Creatinine Ratio 14.1 Glucose 110 H Calcium 8.3 L Phosphorus 3.8 Total Bilirubin 0.3 AST 716 H ALT 232 H Alkaline Phosphatase 41 Total Protein 5.6 L Albumin 3.0 L Globulin 2.6 Albumin/Globulin Ratio 1.2 Previous total creatinine kinase 33510, myoglobin 8704, elevated liver function test MRI scan elbow muscular edema in the biceps and subcutaneous tissues, no other abnormality Assessment & Plan Assessment and plan (1) Rhabdomyolysis: Status: Acute (2) Elevated LFTs: Status: Acute Plan She is improving with hydration. I think it is reasonable for her to be discharged to home later in the day. We discussed a gradual upper extremity str etching program and avoidance of any strengthening or lifting for at least several weeks. She does have some evidence of edema in her biceps bilaterally and likely has some component of muscle injury which I think likely will resolve with conservative treatment. Time Spent With Patient Critical Care time: I spent a total of [] minutes of critical care time on this patient's care today; this time is exclusive of procedural time.
[2022-03-21 08:00] VITALS: BP 125/68; PULSE 62; RESP 19; TEMP 37.5; O2SAT 99
[2022-03-21 09:39] VITALS: O2SAT 98
[2022-03-21 09:47] LABS: Creatine Kinase 51509 U/L (30-135)
[2022-03-21 12:00] VITALS: BP 132/62; PULSE 70; RESP 19; TEMP 37.8; O2SAT 99
--- NOTE | 2022-03-21 16:02 | P.DS_ITS ---
History of Present Illness History of Present Illness Date Patient Seen: 03/21/22 Chief complaint: Ref for fluids Narrative: History of Present Illness Date Patient Seen: 03/19/22 Time Patient Seen: 21:00 Chief complaint: Ref for fluids Narrative: Ms. Martinez is a 26W with no significant PMH who presents with bilateral arm swelling, pain, weakness. She has noted that she did strenuous exercise three days ago, and this continued the following days. These were primarily arm e xercises. She also did go on a run. She noted two days ago the beginning of arm swelling that was primarily located in her bicep. Over the next few days, this worsened to include pain with extension. She noted dark urine. She was aware of rhabdo, and sought to be checked out as she was concerned she might have it. She was first seen in the walk-in clinic, where CK was noted to be 66,000. She was sent to the ED. In the ED workup was done, vitals notable for normal temperature, heart rate. Blood pressure elevated 170s/110s. Labs notable for WBC 7.1, hgb 12.9, plts 309. Creatinine 0.78, K 4.4. AST/ALT 1045/247. UA notable for 3+ blood with no RBCs. COVID negative. She was given IV fluids and admitted for further treatment. Family history: kidney disease Social history: occasional EtOH Discharge Providers Provider Date of admission: 03/19/22 18:10 Discharge Date: 03/21/22 Primary care physician: N/A Consults: ORTHO SURGERY Discharge provider: Noemy Miller DO Summary Hospital Course Discharge Diagnosis: ACUTE RHABDOMYOLYSIS. CPK IMPROVING BURSITIS. PER MRI FEVER. POSSIBLE VITAMIN DEFICIENCY. FOR ADDITIONAL WORKUP OUTPATIENT ELEVATED LIVER ENZYMES. SECONDARY TO ABOVE Hospital Course: THIS IS A VERY PLEASANT 26-YEAR-OLD FEMALE WITH NO PAST MEDICAL HISTORY OF SIGNIFICANCE. NO SPECIAL DIET RESTRICTION OR PABS-USE-TCOGQTL NUTRITIONAL SUPPLEMENTS REPORTED PATIENT WAS BROUGHT TO THE HOSPITAL WITH SWELLING TO BOTH ELBOWS. THIS STARTED HAPPENING AFTER A REPORTED STRENUOUS EXERCISE ACTIVITY. PATIENT WAS NOTED TO HAVE A CPK LEVEL ABOVE 60,000 ADMISSION. RHABDOMYOLYSIS WAS DIAGNOSED. PATIENT HAD A MRI OF THE EXTREMITIES DUE TO PERSISTENT SWELLING. BURSITIS WAS ALSO SUSPECTED. THE MRI WAS REVIEWED BY ORTHOPEDIC SURGERY AND NO COMPARTMENT SYNDROME SUSPECTED. AT THIS TIME, HER SWELLING HAS SIGNIFICANTLY IMPROVED. SURGICAL INTERVENTION IS NOT PLANNED BY ORTHOPEDIC SURGERY TEAM. SHE HAS BEEN CLEARED FOR DISCHARGE. RECOMMENDATION IS TO AVOID HEAVY LIFTING UNTIL CLEARED BY ORTHOPEDIC SURGERY TO DO SO. LABS TO BE ORDERED FOR NEXT WEEK 03/25. RECOMMENDATION ALSO TO FOLLOW UP WITH ORTHOPEDIC SURGERY NEXT WEEK ALSO. ORDERS HAVE BEEN PLACED IN THE CHART. AND NURSING/PATIENT AWARE. PATIENT WILL NEED TO COME TO THE LAB AT [facility] FOR FOLLOW-UP LABS NEXT WEEK ALSO INSTRUCTED TO REMAIN WELL HYDRATED AND TO MONITOR INPUT AND OUTPUT REPORTING DECREASED URINATION WHICH COULD BE SIGN OF RENAL FAILURE ALSO PATIENT TO REPORT ANY INCREASING SWELLING TO THE ELBOW WELL INCREASING REDNESS AND OTHER WORRISOME SIGNS COULD INDICATE DEVELOPING COMPLICATIONS. ADDITIONAL MANAGEMENT PER OUTPATIENT PROVIDERS INSTRUCTION FOLLOW-UP WITH ORTHOPEDIC SURGERY WITHIN 7-10 DAYS ACTIVITIES TOLERATED HOWEVER AVOID HEAVY LIFTING WITH THE UPPER EXTREMITIES REGULAR DIET Status at Discharge Cognitive/behavioral status at discharge: oriented Functional status at discharge: independent ambulation Overall status at discharge: patient is progressing back to baseline Time Spent with Patient Time spent: Greater than 30 minutes Exam Vital Signs (past 8 hours): - 03/21/22 09:39 03/21/22 12:00 Temperature 100.1 F H Pulse Rate 70 Respiratory Rate 19 Blood Pressure 132/62 Pulse Oximetry 98 99 Oxygen Delivery Method Room Air Oxygen Flow Rate 0 Narrative Exam Narrative: NO ACUTE DISTRESS.? PATIENT IS ALERT ORIENTED X3. VITAL SIGNS STABLE HEAD ATRAUMATIC NORMOCEPHALIC NECK : SUPPLE WITHOUT ADENOPATHY NO CAROTID BRUITS EYE:? EOMI, PERRLA, NORMAL CONJUNCTIVA; NO JAUNDICE CHEST:? REGULAR RATE.? ? NO RUBS.? PMI IS NON DISPLACED.? NO MURMURS; NORMAL S1- S2 PULMONARY:? DECREASED BS OVER THE BASES.? MILD BIBASILAR CRACKLES NOTED; NO INCREASED DULLNESS TO PERCUSSION ABDOMEN:? SOFT.? NONTENDER.? NONDISTENDED.? BOWEL SOUNDS ARE PRESENT IN ALL 4 QUADRANTS.? NO MASS. EXTREMITIES: NO EDEMA TO LOWER EXTREMITIES NO CYANOSIS CLUBBING NOTED.? SWELLING NOTED TO THE LEFT ELBOW.? NO DECREASED SENSATION TO THE EXTREMITIES.? NO OPEN WOUNDS NEURO:? CRANIAL NERVES 2-12 GROSSLY INTACT. NO FOCAL NEUROLOGICAL DEFICIT NOTED. MSK:? NORMAL RANGE OF MOTION FOR AGE.? NO JOINT EFFUSION. SKIN:? NORMAL FOR ETHNICITY; NO ECCHYMOSIS.? NO LESION. ? GOOD? TURGOR.; NO RASHES :? NORMAL EXTERNAL GENITALIA. PSYCH :? APPROPRIATE MOOD AND AFFECT.? ALERT AWAKE ORIENTED X3 Objective Labs Result Diagrams: 03/21/22 04:47 03/21/22 04:47 Labs: Laboratory Results - last 24 hr 03/21/22 03/21/22 03/21/22 04:47 04:47 04:47 WBC 6.0 RBC 3.68 L Hgb 11.4 L Hct 32.7 L MCV 88.9 MCH 31.0 MCHC 34.9 RDW 13.3 Plt Count 204 Neut % (Auto) 53.6 Lymph % (Auto) 33.9 [place] % (Auto) 7.6 Eos % (Auto) 4.2 H Baso % (Auto) 0.7 Neut # (Auto) 3200 Lymph # (Auto) 2000 [place] # (Auto) 500 Eos # (Auto) 200 Baso # (Auto) 0 Sodium 137 Potassium 3.9 Chloride 110 H Carbon Dioxide 23 BUN 9 Creatinine 0.64 Estimated GFR > 60 BUN/Creatinine Ratio 14.1 Glucose 110 H Calcium 8.3 L Phosphorus 3.8 Total Bilirubin 0.3 AST 716 H ALT 232 H Alkaline Phosphatase 41 Total Creatine Kinase 35803 H Total Protein 5.6 L Albumin 3.0 L Globulin 2.6 Albumin/Globulin Ratio 1.2 PFSH Social History household members: significant other Smoking Status: Never smoker Discharge Plan Discharge Plan Patient Disposition: Home Nursing Discharge Comment: F/U WITH ORTHO IN 1 WEEK Discharge orders & Medications Prescriptions: Continued control PO 0RF Follow up/Referrals: Miscellaneous,DoctorMD [Non-Staff] - Other Ambulatory Orders: Creatine Kinase (Stat) Timeframe: 20220325 Facility: [facility] - Location: Laboratory Ordered By: Noemy Miller Comprehensive Metabolic Panel (Stat) Timeframe: 20220325 Facility: [facility] - Location: Laboratory Ordered By: Noemy Miller Diet/Activity/Treatments Diet: Regular Activity: NO LIFTING OBJECT > 2-3 LBS UNTIL CLEAR BY ORTHO Skin/Wound/Dressing Care Report to your healthcare provider any signs of infection, such as:: chills, fever, night sweats, increased pain, unusual drainage and unusual redness Discharge Data Attending Provider: Noemy Miller
[2022-03-22 06:18] LABS: Myoglobin 680 ng/mL (25-58)
== END 2022-03-21 17:00 | disposition home or self-care (01) ==
LOC: ED 16:31 → AC 18:11
PROVIDERS: Internal Medicine; Admitting Provider Hospitalist; Emergency Provider Emergency Medicine; Referring Provider Emergency Medicine; Visit Provider Hospitalist
DX: M62.82 Rhabdomyolysis (principal); R79.89 Other specified abnormal findings of blood chemistry; M70.32 Other bursitis of elbow, left elbow; D64.9 Anemia, unspecified; Y93.79 Activity, other specified sports and athletics; Z20.822 Contact with and (suspected) exposure to COVID-19; M79.601 Pain in right arm; M79.602 Pain in left arm
CPT/HCPCS: 36415; 73223; 80048; 80053; 80076; 81001; 82550; 82553; 83874; 84100; 85025; 85610; 85730; 87635; 93005; 93010; 94760; 96360; 96361; 99284; C9803; G0378; A9579